=== PATIENT | female | born 1965 | race Caucasian/White ===

== ENCOUNTER 2017-10-21 09:21 | Outpatient (CLI) | payer OTHER ==
[~2017-10-21 09:21] MED LIST: PRILOSEC20 MG PO; ZANTAC150 MG PO
== END 2017-10-21 14:38 | disposition home or self-care (01) ==
LOC: SONOGRAMA 09:21
DX: R10.2 Pelvic and perineal pain (principal); M54.5 Low back pain

== ENCOUNTER 2017-10-22 08:10 | Outpatient (CLI) | payer OTHER | END 2017-10-22 08:32 | disposition home or self-care (01) | LOC: LAB 08:10 | DX: D51.0 Vitamin B12 deficiency anemia due to intrinsic factor deficiency (principal); K71.3 Toxic liver disease with chronic persistent hepatitis; C16.3 Malignant neoplasm of pyloric antrum ==

== ENCOUNTER → 2020-11-28 | Outpatient (CLI) | payer OTHER | END | disposition home or self-care (01) | LOC: MAMO-SONO 07:45 | PROVIDERS: ATTEND Radiology Diagnostic Radiology | DX: Z12.31 Encounter for screening mammogram for malignant neoplasm of breast (principal); Z48.815 Encounter for surgical aftercare following surgery on the digestive system; E04.8 Other specified nontoxic goiter ==

== ENCOUNTER 2021-04-22 09:38 | Outpatient (CLI) | payer OTHER | END 2021-04-22 09:43 | disposition home or self-care (01) | LOC: TOM 09:38 | DX: G93.89 Other specified disorders of brain (principal); R55 Syncope and collapse ==

== ENCOUNTER 2021-06-03 11:05 | Emergency (ER) | payer OTHER ==
[~2021-06-03] VITALS: Ht 157.5 cm; Wt 54.4 kg
[2021-06-03] MEDS ORDERED: ZOLPIDEM TARTR3.5 MG (11:42)
== END 2021-06-03 15:54 | disposition home or self-care (01) ==
LOC: ER 11:05
DX: B34.9 Viral infection, unspecified (principal); Z20.822 Contact with and (suspected) exposure to COVID-19

== ENCOUNTER 2021-10-20 11:55 | Outpatient (CLI) | payer OTHER ==
[~2021-10-20 11:55] MED LIST changes: +ZOLPIDEM TARTR3.5 MG
== END 2021-10-22 12:29 | disposition home or self-care (01) ==
LOC: RAD 11:55
PROVIDERS: ATTEND Radiology Diagnostic Radiology
DX: I10 Essential (primary) hypertension (principal)

== ENCOUNTER 2022-03-19 07:37 | Outpatient (CLI) | payer OTHER | END 2022-03-19 08:20 | disposition home or self-care (01) | LOC: TOM 07:37 | PROVIDERS: ATTEND General Practice | DX: C16.9 Malignant neoplasm of stomach, unspecified (principal) ==